=== PATIENT | female | born 1965 | race Caucasian/White ===

== ENCOUNTER 2016-04-24 16:13 | Emergency (ER) | payer SELFPAY ==
[~2016-04-24 16:13] MED LIST: CHOLESTEROL PILL PO; CIPRO500 M1 PO; CLONAZEPAM0.5 MG PO; DIAMOX 250MG250 MG PO; DICLOFENAC POT.50 MG; MIRALAX17 GM PO; NORCO 325 MG-51 TAB PO; PERCOCET 325 MG1 TA2 PO; PREDNISONE10 MG PO; PROVENTIL0.09 MG/A1 IH; RANITIDINE HYD150 M1 PO; SENOKOT S 50 MG1 TAB PO; TUSSIONEX PENN115 ML PO; ZITHROMAX500 M2 PO; ZOCOR; ZOFRAN ODT4 MG PO; ZOLOFT; ZOLOFT 100MG100 MG PO; ZYRTEC10 M3 PO
[2016-04-24] MEDS ORDERED: ZOFRAN ODT4 MG PO (17:33)
[2016-04-24] MEDS ORDERED: CIPRO500 M1 PO (17:33)
== END 2016-04-24 18:00 | disposition home or self-care (01) ==
LOC: ED 16:13
DX: N30.00 Acute cystitis without hematuria (principal)
CPT/HCPCS: J1885; J2405; Q9967

== ENCOUNTER 2016-08-21 12:58 | Emergency (ER) | payer OTHER ==
[~2016-08-21] VITALS: Ht 152.4 cm; Wt 70.9 kg
[2016-08-21] MEDS ORDERED: POTASSIUM CHLO10 ME7 PO (15:16)
[2016-08-21] MEDS ORDERED: TRAMADOL 50 MG TAB PO (15:16)
[2016-08-21 15:29] VITALS: BP 119/67
== END 2016-08-21 15:27 | disposition home or self-care (01) ==
LOC: ED 12:58
DX: M94.0 Chondrocostal junction syndrome [Tietze] (principal); F41.9 Anxiety disorder, unspecified; E87.6 Hypokalemia; I10 Essential (primary) hypertension; E78.5 Hyperlipidemia, unspecified; Z86.718 Personal history of other venous thrombosis and embolism; G40.909 Epilepsy, unspecified, not intractable, without status epilepticus; F32.9 Major depressive disorder, single episode, unspecified; R07.9 Chest pain, unspecified
CPT/HCPCS: J1885

== ENCOUNTER 2016-08-26 22:34 | Emergency (ER) | payer OTHER ==
[~2016-08-26] VITALS: Ht 152.4 cm; Wt 70.9 kg
[~2016-08-26 22:34] MED LIST changes: +POTASSIUM CHLO10 ME7 PO; +TRAMADOL 50 MG TAB PO
[2016-08-27 03:04] VITALS: BP 95/55
== END 2016-08-27 03:16 | disposition home or self-care (01) ==
LOC: ED 22:34
DX: J20.9 Acute bronchitis, unspecified (principal); F17.210 Nicotine dependence, cigarettes, uncomplicated

== ENCOUNTER 2016-08-29 01:20 | Emergency (ER) | payer OTHER ==
[~2016-08-29] VITALS: Ht 152.4 cm; Wt 70.9 kg
[2016-08-29] MEDS ORDERED: CHERATUSSIN AC120 ML PO (03:58)
[2016-08-29] MEDS ORDERED: PREDNISONE10 MG PO (03:58)
[2016-08-29 05:29] VITALS: BP 95/59
== END 2016-08-29 05:29 | disposition home or self-care (01) ==
LOC: ED 01:20
DX: J18.9 Pneumonia, unspecified organism (principal); R05 Cough; R50.9 Fever, unspecified; F17.210 Nicotine dependence, cigarettes, uncomplicated; Z86.718 Personal history of other venous thrombosis and embolism; Z86.711 Personal history of pulmonary embolism
CPT/HCPCS: J1885; J2930

== ENCOUNTER 2017-09-17 16:49 | Emergency (ER) | payer OTHER ==
[~2017-09-17] VITALS: Ht 152.4 cm; Wt 68.2 kg
[~2017-09-17 16:49] MED LIST changes: +CHERATUSSIN AC120 ML PO
[2017-09-17 18:06] LABS: ALBUMIN 3.8 g/dL (3.5-5.0); BUN/CREATININE RATIO 23.8 (6.0-26.0); CALCIUM 8.5 mg/dL (8.4-10.2); POTASSIUM 3.7 mmol/L (3.6-5.0); TOTAL BILIRUBIN 0.4 mg/dL (0.2-1.3)
[2017-09-17 18:11] LABS: EOS # 0.2 (0.04-0.40); EOS % 3.2 % (1.0-5.0); HEMOGLOBIN 14.6 g/dL (12.5-16.0); LYMPH# 2.7 (1.50-4.00); MEAN CELL VOLUME 90 fl (78-100); MEAN CORPUSCULAR HEMOGLOBIN 29 pg (27-31); MEAN CORPUSCULAR HGB CONC 32 g/dL (33-37); MEAN PLATELET VOLUME 10.4 fl (7.4-10.4); MONO # 0.8 (0.20-0.80); NEU # 3.4 (1.40-6.50); PLATELET COUNT 334 K/mm3 (130-400); RED BLOOD COUNT 5.01 M/mm3 (4.10-5.30); RED CELL DISTRIBUTION WIDTH 14.7 % (11.5-14.5); WHITE BLOOD COUNT 7.2 K/mm3 (4.8-10.8)
[2017-09-17 19:21] LABS: URINE APPEARANCE HAZY; URINE BILIRUBIN NEGATIVE (NEGATIVE); URINE BLOOD NEGATIVE (NEGATIVE); URINE COLOR YELLOW; URINE GLUCOSE NEGATIVE (NEGATIVE); URINE KETONE NEGATIVE (NEGATIVE); URINE NITRATE NEGATIVE (NEGATIVE); URINE PROTEIN(semi-quant) TRACE mg/dL (NEGATIVE); URINE UROBILINOGEN NORMAL (NORMAL)
[2017-09-17 19:22] LABS: URINE LEUKOCYTE ESTERASE 1+ (NEGATIVE)
[2017-09-17 19:56] VITALS: BP 107/59
== END 2017-09-17 20:02 | disposition home or self-care (01) ==
LOC: ED 16:49
PROVIDERS: Nurse Practitioner Primary Care
DX: R10.32 Left lower quadrant pain (principal); R10.31 Right lower quadrant pain; Z87.442 Personal history of urinary calculi; Z79.899 Other long term (current) drug therapy
CPT/HCPCS: J1885; J2405; Q9967

== ENCOUNTER 2019-03-31 11:01 | Emergency (ER) | payer OTHER ==
[~2019-03-31] VITALS: Ht 152.4 cm; Wt 68.2 kg
[~2019-03-31 11:01] MED LIST changes: -CLONAZEPAM0.5 MG PO; +KLONOPIN 0.5MG0.5 MG PO
[2019-03-31] MEDS ORDERED: CALCIUM 600 MG-1 TAB PO (11:20)
[2019-03-31] MEDS ORDERED: POTASSIUM CHLO10 ME8 (11:20)
[2019-03-31] MEDS ORDERED: PHARMASSURE CHE30 MG (11:21)
[2019-03-31 12:31] LABS: D-DIMER 0.36 mg/L FEU (0.15-0.50)
[2019-03-31 13:34] VITALS: BP 116/60
== END 2019-03-31 13:41 | disposition home or self-care (01) ==
LOC: ED 11:01
PROVIDERS: Physician Assistant
DX: M70.71 Other bursitis of hip, right hip (principal); E78.5 Hyperlipidemia, unspecified; F17.210 Nicotine dependence, cigarettes, uncomplicated; W00.9XXA Unspecified fall due to ice and snow, initial encounter; Y92.009 Unspecified place in unspecified non-institutional (private) residence as the place of occurrence of the external cause
CPT/HCPCS: J1885

== ENCOUNTER 2020-02-01 19:59 | Emergency (ER) | payer OTHER ==
[~2020-02-01] VITALS: Ht 152.4 cm; Wt 70.5 kg
[~2020-02-01 19:59] MED LIST changes: +CALCIUM 600 MG-1 TAB PO; +GOOD NEIGHBOR P20 MG PO; +PHARMASSURE CHE30 MG; +POTASSIUM CHLO10 ME8
[2020-02-01] MEDS ORDERED: NATURAL IRON65 MG PO (20:38)
[2020-02-01] MEDS ORDERED: PROZAC40 M1 PO (20:40)
[2020-02-01 21:23] LABS: EOS # 0.2 (0.04-0.40); EOS % 2.2 % (1.0-5.0); HEMATOCRIT 44.7 % (37.0-47.0); HEMOGLOBIN 13.9 g/dL (12.5-16.0); LYMPH# 3.1 (1.50-4.00); MEAN CELL VOLUME 90 fl (78-100); MEAN CORPUSCULAR HEMOGLOBIN 28 pg (27-31); MEAN CORPUSCULAR HGB CONC 31 g/dL (33-37); MEAN PLATELET VOLUME 9.6 fl (7.4-10.4); MONO # 0.8 (0.20-0.80); NEU # 5.4 (1.40-6.50); PLATELET COUNT 336 K/mm3 (130-400); RED BLOOD COUNT 4.97 M/mm3 (4.10-5.30); RED CELL DISTRIBUTION WIDTH 14.6 % (11.5-14.5); WHITE BLOOD COUNT 9.5 K/mm3 (4.8-10.8)
[2020-02-01 21:31] LABS: ALBUMIN 4.2 g/dL (3.5-5.0)
[2020-02-01 21:32] LABS: POTASSIUM 3.9 mmol/L (3.5-5.1)
[2020-02-01 21:33] LABS: CALCIUM 8.9 mg/dL (8.3-10.5)
[2020-02-01 21:34] LABS: TOTAL PROTEIN 7.2 g/dL (6.4-8.3)
[2020-02-01 21:36] LABS: TOTAL BILIRUBIN 0.2 mg/dL (0.2-1.2)
[2020-02-01 22:57] LABS: URINE APPEARANCE HAZY; URINE BILIRUBIN NEGATIVE (NEGATIVE); URINE BLOOD NEGATIVE (NEGATIVE); URINE COLOR YELLOW; URINE GLUCOSE NEGATIVE (NEGATIVE); URINE KETONE NEGATIVE (NEGATIVE); URINE LEUKOCYTE ESTERASE TRACE (NEGATIVE); URINE MUCUS PRESENT (NOT PRESENT); URINE NITRATE NEGATIVE (NEGATIVE); URINE PROTEIN(semi-quant) TRACE mg/dL (NEGATIVE); URINE UROBILINOGEN NORMAL (NORMAL)
[2020-02-02] MEDS ORDERED: ONDANSETRON ODT8 MG PO (00:01)
[2020-02-02 00:26] VITALS: BP 124/84
== END 2020-02-02 00:28 | disposition home or self-care (01) ==
LOC: ED 19:59
PROVIDERS: Nurse Practitioner Family
DX: R11.2 Nausea with vomiting, unspecified (principal); R10.84 Generalized abdominal pain; R19.7 Diarrhea, unspecified; F41.9 Anxiety disorder, unspecified; F17.210 Nicotine dependence, cigarettes, uncomplicated; Z20.828 Contact with and (suspected) exposure to other viral communicable diseases; Z90.710 Acquired absence of both cervix and uterus; Z88.1 Allergy status to other antibiotic agents
CPT/HCPCS: J1885; J2405; J7030; Q9967

== ENCOUNTER 2020-04-25 10:33 | Emergency (ER) | payer OTHER ==
[~2020-04-25 10:33] MED LIST changes: +NATURAL IRON65 MG PO; +ONDANSETRON ODT8 MG PO; +PROZAC40 M1 PO
[2020-04-25 11:13] LABS: EOS # 0.2 (0.04-0.40); EOS % 2.5 % (1.0-5.0); HEMATOCRIT 39.8 % (37.0-47.0); HEMOGLOBIN 12.4 g/dL (12.5-16.0); LYMPH# 2.7 (1.50-4.00); MEAN CELL VOLUME 90 fl (78-100); MEAN CORPUSCULAR HEMOGLOBIN 28 pg (27-31); MEAN CORPUSCULAR HGB CONC 31 g/dL (33-37); MEAN PLATELET VOLUME 10.2 fl (7.4-10.4); MONO # 0.8 (0.20-0.80); NEU # 4.7 (1.40-6.50); PLATELET COUNT 259 K/mm3 (130-400); RED BLOOD COUNT 4.44 M/mm3 (4.10-5.30); RED CELL DISTRIBUTION WIDTH 13.9 % (11.5-14.5); WHITE BLOOD COUNT 8.4 K/mm3 (4.8-10.8)
[2020-04-25 11:24] LABS: ALBUMIN 3.9 g/dL (3.5-5.0)
[2020-04-25 11:25] LABS: POTASSIUM 3.7 mmol/L (3.5-5.1); SODIUM 139 mmol/L (136-145)
[2020-04-25 11:26] LABS: CALCIUM 8.4 mg/dL (8.3-10.5)
[2020-04-25 11:27] LABS: GLUCOSE 98 mg/dL (65-105); TOTAL PROTEIN 6.3 g/dL (6.4-8.3)
[2020-04-25 11:28] LABS: CARBON DIOXIDE 20 mmol/L (22-29)
[2020-04-25 11:29] LABS: TOTAL BILIRUBIN 0.2 mg/dL (0.2-1.2)
[2020-04-25 11:34] LABS: ALT/SGPT 16 U/L (0-55); AST-SGOT 17 U/L (5-34)
[2020-04-25] MEDS ORDERED: ACETAZOLAMIDE125 M1 (11:44)
[2020-04-25 11:48] LABS: TROPONIN-I < 0.03 ng/mL (<0.030)
[2020-04-25 11:58] LABS: D-DIMER 0.34 mg/L FEU (0.15-0.50)
[2020-04-25 12:09] LABS: URINE WBC 0 /hpf (0-3)
[2020-04-25 12:30] LABS: URINE APPEARANCE CLOUDY; URINE BILIRUBIN NEGATIVE (NEGATIVE); URINE BLOOD NEGATIVE (NEGATIVE); URINE COLOR YELLOW; URINE GLUCOSE NEGATIVE (NEGATIVE); URINE KETONE NEGATIVE (NEGATIVE); URINE LEUKOCYTE ESTERASE NEGATIVE (NEGATIVE); URINE MUCUS PRESENT (NOT PRESENT); URINE NITRATE NEGATIVE (NEGATIVE); URINE PROTEIN(semi-quant) NEGATIVE (NEGATIVE); URINE UROBILINOGEN NORMAL (NORMAL)
[2020-04-25 12:48] LABS: LIPASE 14 U/L (8-78)
[2020-04-25 15:01] VITALS: BP 137/81
== END 2020-04-25 15:01 | disposition home or self-care (01) ==
LOC: ED 10:33
PROVIDERS: Nurse Practitioner Family
DX: R06.02 Shortness of breath (principal); R00.2 Palpitations; R10.9 Unspecified abdominal pain; R00.1 Bradycardia, unspecified; F17.210 Nicotine dependence, cigarettes, uncomplicated; Z20.822 Contact with and (suspected) exposure to COVID-19; Z90.710 Acquired absence of both cervix and uterus; Z82.49 Family history of ischemic heart disease and other diseases of the circulatory system; Z88.1 Allergy status to other antibiotic agents
CPT/HCPCS: J7030

== ENCOUNTER 2020-04-26 16:50 | Emergency (ER) | payer OTHER ==
[~2020-04-26 16:50] MED LIST changes: +ACETAZOLAMIDE125 M1
[2020-04-26 18:09] LABS: EOS # 0.2 (0.04-0.40); EOS % 2.8 % (1.0-5.0); HEMATOCRIT 40.8 % (37.0-47.0); HEMOGLOBIN 12.5 g/dL (12.5-16.0); MEAN CELL VOLUME 90 fl (78-100); MEAN CORPUSCULAR HEMOGLOBIN 28 pg (27-31); MEAN CORPUSCULAR HGB CONC 31 g/dL (33-37); MEAN PLATELET VOLUME 9.7 fl (7.4-10.4); MONO # 0.7 (0.20-0.80); NEU # 3.8 (1.40-6.50); PLATELET COUNT 262 K/mm3 (130-400); RED BLOOD COUNT 4.53 M/mm3 (4.10-5.30); RED CELL DISTRIBUTION WIDTH 13.9 % (11.5-14.5); WHITE BLOOD COUNT 7.8 K/mm3 (4.8-10.8)
[2020-04-26 19:13] LABS: ALBUMIN 3.7 g/dL (3.5-5.0); ALT/SGPT 15 U/L (0-55); AST-SGOT 15 U/L (5-34); CARBON DIOXIDE 25 mmol/L (22-29); GLUCOSE 94 mg/dL (65-105); POTASSIUM 3.6 mmol/L (3.5-5.1); SODIUM 143 mmol/L (136-145); TOTAL BILIRUBIN 0.2 mg/dL (0.2-1.2); TOTAL PROTEIN 6.1 g/dL (6.4-8.3); TROPONIN-I < 0.03 ng/mL (<0.030)
[2020-04-26 19:36] VITALS: BP 159/85
== END 2020-04-26 19:36 | disposition home or self-care (01) ==
LOC: ED 16:50
PROVIDERS: Physician Assistant
DX: M79.18 Myalgia, other site (principal); F41.9 Anxiety disorder, unspecified; F32.9 Major depressive disorder, single episode, unspecified; F17.210 Nicotine dependence, cigarettes, uncomplicated; Z88.1 Allergy status to other antibiotic agents
CPT/HCPCS: J1885

== ENCOUNTER 2020-07-06 10:39 | Emergency (ER) | payer OTHER ==
[2020-07-06 11:17] LABS: BASO # 0.02 (0.02-0.10); EOS # 0.13 (0.04-0.40); EOS % 1.2 % (1.0-5.0); HEMOGLOBIN 14.2 g/dL (12.5-16.0); MEAN CELL VOLUME 91 fl (78-100); MEAN CORPUSCULAR HEMOGLOBIN 29 pg (27-31); MEAN CORPUSCULAR HGB CONC 32 g/dL (33-37); MEAN PLATELET VOLUME 9.7 fl (7.4-10.4); MONO # 0.67 (0.20-0.80); NEU # 7.77 (1.40-6.50); PLATELET COUNT 304 K/mm3 (130-400); RED BLOOD COUNT 4.97 M/mm3 (4.10-5.30); RED CELL DISTRIBUTION WIDTH 13.7 % (11.5-14.5); WHITE BLOOD COUNT 10.9 K/mm3 (4.8-10.8)
[2020-07-06 11:33] LABS: ALBUMIN 4.5 g/dL (3.5-5.0); POTASSIUM 3.9 mmol/L (3.5-5.1)
[2020-07-06 11:36] LABS: TOTAL PROTEIN 7.5 g/dL (6.4-8.3)
[2020-07-06 11:38] LABS: TOTAL BILIRUBIN 0.3 mg/dL (0.2-1.2)
[2020-07-06 12:36] VITALS: BP 139/82
== END 2020-07-06 12:31 | disposition home or self-care (01) ==
LOC: ED 10:39
PROVIDERS: Nurse Practitioner Primary Care
DX: A08.4 Viral intestinal infection, unspecified (principal); F17.210 Nicotine dependence, cigarettes, uncomplicated; Z20.822 Contact with and (suspected) exposure to COVID-19; Z88.1 Allergy status to other antibiotic agents
CPT/HCPCS: J2405; J3490; J7030

== ENCOUNTER 2020-08-24 16:38 | Emergency (ER) | payer OTHER ==
[2020-08-24 16:55] LABS: BASO # 0.02 (0.02-0.10); EOS # 0.15 (0.04-0.40); EOS % 1.4 % (1.0-5.0); HEMATOCRIT 45.4 % (37.0-47.0); HEMOGLOBIN 14.9 g/dL (12.5-16.0); LYMPH# 3.49 (1.50-4.00); MEAN CELL VOLUME 87 fl (78-100); MEAN CORPUSCULAR HEMOGLOBIN 29 pg (27-31); MEAN CORPUSCULAR HGB CONC 33 g/dL (33-37); MONO # 0.62 (0.20-0.80); NEU # 6.18 (1.40-6.50); PLATELET COUNT 313 K/mm3 (130-400); RED CELL DISTRIBUTION WIDTH 12.9 % (11.5-14.5); WHITE BLOOD COUNT 10.5 K/mm3 (4.8-10.8)
[2020-08-24 17:03] LABS: ALBUMIN 4.5 g/dL (3.5-5.0)
[2020-08-24 17:04] LABS: POTASSIUM 3.3 mmol/L (3.5-5.1); SODIUM 141 mmol/L (136-145)
[2020-08-24 17:05] LABS: CALCIUM 9.4 mg/dL (8.3-10.5)
[2020-08-24 17:06] LABS: GLUCOSE 119 mg/dL (65-105); TOTAL PROTEIN 7.4 g/dL (6.4-8.3)
[2020-08-24 17:08] LABS: TOTAL BILIRUBIN 0.4 mg/dL (0.2-1.2)
[2020-08-24 17:11] LABS: AST-SGOT 18 U/L (5-34)
[2020-08-24 17:12] LABS: ALT/SGPT 20 U/L (0-55)
[2020-08-24 17:16] LABS: CARBON DIOXIDE 17 mmol/L (22-29)
[2020-08-24 17:21] LABS: TROPONIN-I < 0.03 ng/mL (<0.030)
[2020-08-24 19:30] LABS: URINE APPEARANCE CLEAR; URINE BILIRUBIN NEGATIVE (NEGATIVE); URINE BLOOD TRACE (NEGATIVE); URINE COLOR YELLOW; URINE GLUCOSE NEGATIVE (NEGATIVE); URINE KETONE NEGATIVE (NEGATIVE); URINE LEUKOCYTE ESTERASE TRACE (NEGATIVE); URINE MUCUS PRESENT (NOT PRESENT); URINE NITRATE NEGATIVE (NEGATIVE); URINE PROTEIN(semi-quant) TRACE mg/dL (NEGATIVE); URINE UROBILINOGEN NORMAL (NORMAL); URINE WBC 0-1 /hpf (0-3)
[2020-08-24 20:44] VITALS: BP 138/99
== END 2020-08-24 20:44 | disposition home or self-care (01) ==
LOC: ED 16:38
PROVIDERS: Nurse Practitioner Family
DX: T67.5XXA Heat exhaustion, unspecified, initial encounter (principal); E87.6 Hypokalemia; R07.2 Precordial pain; F41.9 Anxiety disorder, unspecified; F32.9 Major depressive disorder, single episode, unspecified; G40.909 Epilepsy, unspecified, not intractable, without status epilepticus; F17.210 Nicotine dependence, cigarettes, uncomplicated
CPT/HCPCS: J3480; J7030

== ENCOUNTER 2020-10-21 20:37 | Emergency (ER) | payer OTHER ==
[~2020-10-21] VITALS: Ht 162.6 cm; Wt 74.7 kg
[2020-10-21 21:53] LABS: BASO # 0.03 (0.02-0.10); EOS # 0.29 (0.04-0.40); EOS % 2.5 % (1.0-5.0); HEMATOCRIT 42.7 % (37.0-47.0); HEMOGLOBIN 13.2 g/dL (12.5-16.0); MEAN CELL VOLUME 92 fl (78-100); MEAN CORPUSCULAR HEMOGLOBIN 29 pg (27-31); MEAN CORPUSCULAR HGB CONC 31 g/dL (33-37); MEAN PLATELET VOLUME 9.4 fl (7.4-10.4); MONO # 0.98 (0.20-0.80); PLATELET COUNT 235 K/mm3 (130-400); RED BLOOD COUNT 4.63 M/mm3 (4.10-5.30); RED CELL DISTRIBUTION WIDTH 13.1 % (11.5-14.5); WHITE BLOOD COUNT 11.6 K/mm3 (4.8-10.8)
[2020-10-21] MEDS ORDERED: CYCLOBENZAPRINE10 M1 PO (22:53)
[2020-10-21] MEDS ORDERED: KETOROLAC10 MG PO (22:53)
[2020-10-21 23:27] VITALS: BP 108/80
== END 2020-10-21 23:27 | disposition home or self-care (01) ==
LOC: ED 20:37
PROVIDERS: Family Medicine
DX: M54.6 Pain in thoracic spine (principal); F41.9 Anxiety disorder, unspecified; Z87.442 Personal history of urinary calculi; Z90.710 Acquired absence of both cervix and uterus; Z79.899 Other long term (current) drug therapy
CPT/HCPCS: J1885; J2360

== ENCOUNTER 2021-03-08 14:30 | Emergency (ER) | payer OTHER ==
[~2021-03-08 14:30] MED LIST changes: +CYCLOBENZAPRINE10 M1 PO; +KETOROLAC10 MG PO
[2021-03-08 16:41] VITALS: BP 122/91
== END 2021-03-08 16:07 | disposition home or self-care (01) ==
LOC: ED 14:30
DX: S00.03XA Contusion of scalp, initial encounter (principal); W22.8XXA Striking against or struck by other objects, initial encounter; Y99.0 Civilian activity done for income or pay

== ENCOUNTER 2021-11-01 22:20 | Emergency (ER) | payer OTHER ==
[2021-11-01] MEDS ORDERED: ZYRTEC ALLERGY10 MG PO (22:33)
[2021-11-01] MEDS ORDERED: DICLOFENAC35 MG (22:33)
[2021-11-01] MEDS ORDERED: POTASSIUM CHLO20 ME3 (22:34)
[2021-11-01] MEDS ORDERED: SIMVASTATIN40 M1 (22:34)
[2021-11-01] MEDS ORDERED: VITAMIN D310 MC3 (22:35)
[2021-11-01] MEDS ORDERED: PROPRANOLOL HCL20 M2 (22:35)
[2021-11-01] MEDS ORDERED: EFFEXOR XR150 M1 (22:35)
[2021-11-01] MEDS ORDERED: NATURE'S BLEND500 M5 (22:36)
[2021-11-01 23:00] VITALS: BP 125/81
[2021-11-01] MEDS ORDERED: PAXLOVID CO-PA1 EACH PO (23:16)
== END 2021-11-01 23:27 | disposition home or self-care (01) ==
LOC: ED 22:20
DX: U07.1 COVID-19 (principal); F17.210 Nicotine dependence, cigarettes, uncomplicated; Z28.310 Unvaccinated for COVID-19
CPT/HCPCS: J3301

== ENCOUNTER 2022-01-31 20:03 | Emergency (ER) | payer OTHER ==
[~2022-01-31] VITALS: Ht 157.5 cm; Wt 74.7 kg
[~2022-01-31 20:03] MED LIST changes: +DICLOFENAC35 MG; +EFFEXOR XR150 M1; +NATURE'S BLEND500 M5; +PAXLOVID CO-PA1 EACH PO; +POTASSIUM CHLO20 ME3; +PROPRANOLOL HCL20 M2; +SIMVASTATIN40 M1; +VITAMIN D310 MC3; +ZYRTEC ALLERGY10 MG PO
[2022-01-31 21:42] VITALS: BP 128/62
== END 2022-01-31 21:46 | disposition home or self-care (01) ==
LOC: ED 20:03
DX: M25.562 Pain in left knee (principal); F17.200 Nicotine dependence, unspecified, uncomplicated; Z28.310 Unvaccinated for COVID-19; X58.XXXA Exposure to other specified factors, initial encounter; Y93.01 Activity, walking, marching and hiking
CPT/HCPCS: J1885

== ENCOUNTER 2023-02-02 11:51 | Emergency (ER) | payer OTHER ==
[~2023-02-02] VITALS: Ht 152.4 cm; Wt 75.1 kg
[~2023-02-02 11:51] MED LIST changes: +TOPCARE MI1200 MG/15 PO
[2023-02-02] MEDS ORDERED: VENLAFAXINE37.5 MG PO (11:56)
[2023-02-02 12:30] LABS: BASO # 0.03 K/mm3 (0.02-0.10); EOS # 0.11 K/mm3 (0.04-0.40); EOS % 1.3 % (1.0-5.0); HEMATOCRIT 45.6 % (37.0-47.0); HEMOGLOBIN 14.8 g/dL (12.5-16.0); LYMPH# 2.42 K/mm3 (1.50-4.00); MEAN CELL VOLUME 90 fl (78-100); MEAN CORPUSCULAR HEMOGLOBIN 29 pg (27-31); MEAN CORPUSCULAR HGB CONC 33 g/dL (33-37); MEAN PLATELET VOLUME 9.7 fl (7.4-10.4); MONO # 1.03 K/mm3 (0.20-0.80); NEU # 4.56 K/mm3 (1.40-6.50); PLATELET COUNT 320 K/mm3 (130-400); RED BLOOD COUNT 5.08 M/mm3 (4.10-5.30); RED CELL DISTRIBUTION WIDTH 13.8 % (11.5-14.5); WHITE BLOOD COUNT 8.2 K/mm3 (4.8-10.8)
[2023-02-02 12:42] LABS: ALBUMIN 4.3 g/dL (3.5-5.0)
[2023-02-02 12:43] LABS: CALCIUM 8.9 mg/dL (8.3-10.5)
[2023-02-02 12:45] LABS: TOTAL PROTEIN 7.4 g/dL (6.4-8.3)
[2023-02-02 12:46] LABS: TOTAL BILIRUBIN 0.5 mg/dL (0.2-1.2)
[2023-02-02] MEDS ORDERED: INDERAL 10MG10 MG PO (12:56)
[2023-02-02] MEDS ORDERED: [UNRECOGNIZED DRUG - OTHER] PO (12:56)
[2023-02-02] MEDS ORDERED: MIRTAZAPINE7.5 M1 PO (12:57)
[2023-02-02] MEDS ORDERED: MELOXICAM15 MG PO (12:58)
[2023-02-02] MEDS ORDERED: PROTONIX TR40 M1 PO (12:58)
[2023-02-02] MEDS ORDERED: DIAMOX 250MG250 MG PO (12:58)
[2023-02-02] MEDS ORDERED: POTASSIUM CHLO20 ME3 PO (12:59)
[2023-02-02] MEDS ORDERED: ZOCOR40 M1 PO (13:00)
[2023-02-02] MEDS ORDERED: PROVENTIL0.09 MG/A1 IH (13:00)
[2023-02-02 14:31] LABS: URINE APPEARANCE CLEAR; URINE BILIRUBIN NEGATIVE (NEGATIVE); URINE BLOOD 250 ery/uL (NEGATIVE); URINE COLOR AMBER; URINE GLUCOSE NEGATIVE (NEGATIVE); URINE KETONE NEGATIVE (NEGATIVE); URINE LEUKOCYTE ESTERASE NEGATIVE (NEGATIVE); URINE MUCUS PRESENT (NOT PRESENT); URINE NITRATE NEGATIVE (NEGATIVE); URINE PROTEIN(semi-quant) 1+ (NEGATIVE); URINE UROBILINOGEN NORMAL (NORMAL); URINE WBC 0-1 /hpf (0-3)
[2023-02-02] MEDS ORDERED: KLONOPIN 1MG1 MG PO ×2 (14:35→18:00)
[2023-02-02 18:11] VITALS: BP 124/91
== END 2023-02-02 18:05 | disposition home or self-care (01) ==
LOC: ED 11:51
PROVIDERS: Family Medicine
DX: J98.9 Respiratory disorder, unspecified (principal)

== ENCOUNTER 2023-05-27 05:27 | Emergency (ER) | payer OTHER ==
[~2023-05-27 05:27] MED LIST changes: +INDERAL 10MG10 MG PO; +KLONOPIN 1MG1 MG PO; +MELOXICAM15 MG PO; +MIRTAZAPINE7.5 M1 PO; +POTASSIUM CHLO20 ME3 PO; +PROTONIX TR40 M1 PO; +VENLAFAXINE37.5 MG PO; +ZOCOR40 M1 PO; +[UNRECOGNIZED DRUG - OTHER] PO
[2023-05-27] MEDS ORDERED: NS 1,000 ML IV SCH ×2 (05:45→07:30)
[2023-05-27] MEDS ORDERED: Ondansetron 4 MG/2 ML VIAL IV ONE (05:45)
[2023-05-27] MEDS ORDERED: Ketorolac 30 MG/ML VIAL IV ONE (05:45)
[2023-05-27 05:55] LABS: BASO # 0.02 K/mm3 (0.02-0.10); EOS # 0.23 K/mm3 (0.04-0.40); EOS % 1.5 % (1.0-5.0); HEMOGLOBIN 14.2 g/dL (12.5-16.0); LYMPH# 2.28 K/mm3 (1.50-4.00); MEAN CELL VOLUME 90 fl (78-100); MEAN CORPUSCULAR HEMOGLOBIN 28 pg (27-31); MEAN CORPUSCULAR HGB CONC 32 g/dL (33-37); MEAN PLATELET VOLUME 9.6 fl (7.4-10.4); MONO # 1.11 K/mm3 (0.20-0.80); PLATELET COUNT 348 K/mm3 (130-400); RED CELL DISTRIBUTION WIDTH 13.1 % (11.5-14.5); WHITE BLOOD COUNT 15.2 K/mm3 (4.8-10.8)
[2023-05-27] MEDS ORDERED: fentaNYL 100 MCG/2 ML VIAL IV PRN (06:00)
[2023-05-27 06:03] LABS: CALCIUM 9.1 mg/dL (8.3-10.5)
[2023-05-27 06:05] LABS: TOTAL PROTEIN 6.9 g/dL (6.4-8.3)
[2023-05-27 06:06] LABS: TOTAL BILIRUBIN 0.3 mg/dL (0.2-1.2)
[2023-05-27] MEDS ORDERED: Iohexol 300 - 10 ML VIAL IV ONE (06:27)
[2023-05-27 07:08] LABS: URINE APPEARANCE CLOUDY (CLEAR); URINE COLOR DARK YELLOW (YELLOW); URINE PROTEIN(semi-quant) 1+ (NEGATIVE)
[2023-05-27 07:09] LABS: URINE BILIRUBIN NEGATIVE (NEGATIVE); URINE BLOOD 3+ (NEGATIVE); URINE GLUCOSE NEGATIVE (NEGATIVE); URINE KETONE TRACE (NEGATIVE); URINE LEUKOCYTE ESTERASE NEGATIVE (NEGATIVE); URINE NITRATE NEGATIVE (NEGATIVE)
[2023-05-27] MEDS ORDERED: Morphine 4 MG/ML VIAL IV PRN (07:45)
[2023-05-27 09:35] VITALS: BP 135/92
== END 2023-05-27 09:20 | disposition short-term general hospital (02) ==
LOC: ED 05:27
PROVIDERS: Physician Assistant
DX: N13.2 Hydronephrosis with renal and ureteral calculous obstruction (principal); F17.210 Nicotine dependence, cigarettes, uncomplicated; Z88.1 Allergy status to other antibiotic agents
CPT/HCPCS: J1885; J1956; J2270; J2405; J2765; J3010; J7030; Q9967

== ENCOUNTER → 2023-11-14 | Outpatient (CLI) | payer OTHER | LOC: RAD 13:30 | DX: M75.111 Incomplete rotator cuff tear or rupture of right shoulder, not specified as traumatic (principal); Z98.890 Other specified postprocedural states ==